=== PATIENT | female | born 1975 | race African-American/Black ===

== ENCOUNTER 2016-07-22 22:31 | Emergency (ER) | payer OTHER ==
[~2016-07-22 22:31] MED LIST: ALDACTONE25 MG PO; ALPRAZOLAM; ALPRAZOLAM PO; COUMADIN; COUMADIN10 MG PO; COUMADIN7.5 MG PO; GLUCOPHAGE500 MG PO; LASIX; LORTAB 5-325 M1 EACH; LORTAB 7.5-3251 EACH PO; MOBIC PO; NORVASC
== END 2016-07-22 22:36 | disposition home or self-care (01) ==
LOC: SED 22:31
DX: R58 Hemorrhage, not elsewhere classified (principal); E11.9 Type 2 diabetes mellitus without complications; F17.200 Nicotine dependence, unspecified, uncomplicated
CPT/HCPCS: 99282

== ENCOUNTER → 2016-10-22 | Outpatient (CLI) | payer OTHER ==
--- NOTE | ~2016-10-22 | MR32 ---
[facility] A Service of [facility] RADIOLOGY TEXT RESULTS PATIENT: ROVERTO MORGAN LOCATION: [facility] : 75 UNIT #: [id number] AGE: [address]: Fernando Mayorga IV, MD SEX: F ORDER DR: [id number] [address] [id number] O MR#: [id number] Acc #: [id number] NAME: ROVERTO MORGAN : 1975 SEX: F STUDY DATE/TIME: 10/22/2016 13:12 UNIT: [facility] ROOM: STUDY DESCRIPTION: MR Cervical Wo Contrast Attending Physician: Fernando Mayorga M.D. Referring Physician: Fernando Mayorga M.D. Ordering Physician: Fernando Mayorga M.D. Primary Care Physician: Fernando Mayorga M.D. MRI CENTER REPORT This report is preliminary unless electronic signature is present. EXAM Cervical MRI. HISTORY Patient fell out of bed on 10/07/16 with persistent neck pain radiating to the left upper extremity since. TECHNIQUE Multiplanar imaging of the cervical spine was performed with short and long TR. FINDINGS Alignment is satisfactory. There are mild degenerative changes at the upper cervical discs. At C6-7 there is a broad-based posterior disc osteophyte complex. It causes mild to moderate canal narrowing. The canal and foramina are widely patent at the other cervical levels. The AP diameter of the spinal canal is somewhat narrow on a congenital basis diffusely. There is no evidence of marrow edema or cord lesion. No paraspinous masses are seen. No left-sided disc herniation is seen to account for patient's left-sided radicular symptoms. IMPRESSION Congenitally narrow spinal canal. Mild posterior disc bulging with osteophyte C6-7. Otherwise, negative. Dictated by... Alberto Davis M.D. THIS IS AN ELECTRONICALLY VERIFIED REPORT Alberto Davis M.D. at 10/27/2016 5:48 AM [facility] A Service of [facility] RADIOLOGY TEXT RESULTS PATIENT: ROVERTO MORGAN LOCATION: [facility] : 75 UNIT #: [id number] AGE: [address]: Fernando Mayorga IV, MD SEX: F ORDER DR: TD: 10/22/2016 20:02 JOB #: [id number] [facility]ENTER REPORT Page 1 of 1
== END | disposition home or self-care (01) ==
LOC: SMRI 12:56
DX: M50.20 Other cervical disc displacement, unspecified cervical region (principal); M48.00 Spinal stenosis, site unspecified; M50.823 Other cervical disc disorders at C6-C7 level
CPT/HCPCS: 72141